=== PATIENT | female | born 1985 | race Caucasian/White ===

== ENCOUNTER 2022-11-20 17:25 | Emergency (ER) | payer OTHER, SELFPAY ==
[2022-11-20 17:34] VITALS: BP 123/74; PULSE 75; RESP 16; TEMP 37; O2SAT 100; BMI 20.2
--- NOTE | 2022-11-20 17:55 | ED.SKABFB1 ---
HPI - Skin/Abscess/Foreign Bdy General Chief complaint: Skin/Abscess/Foreign Body Stated complaint: PIERCING ISSUES Time Seen by Provider: 11/20/22 17:55 Source: patient Mode of arrival: walk-in History of Present Illness HPI narrative: Patient process the emergency department complaining of right lateral periorbital piercing infection. She states she had a piercing done 3 years ago in [place]. She's had several infections from the piercing. She is started with getting infected and she wants me to take it out. She states she called the primary care doctor and was told to come to the emergency department as they cannot get her in for a month. Patient was to have this resolved today. She states she had a little bit of tenderness and there was some pus coming out of the surrounding areas of the piercing. She denies any diplopia or pain with extraocular muscle movements. She denies any headache. She denies any fever, chills. Related Data Previous Rx's Medication Instructions Recorded cephalexin 500 mg capsule 500 mg PO TID 7 days #21 caps 11/20/22 Allergies Allergy/AdvReac Type Severity Reaction Status Date / Time Sulfa (Sulfonamide Allergy Severe Verified 11/20/22 17:33 Antibiotics) Review of Systems ROS Status of ROS 10 or more systems reviewed and unremarkable except as noted in history and below Exam Narrative Exam Narrative: Nurses notes and vital signs reviewed and patient is not hypoxic. General: Nontoxic, Well-appearing and in no apparent distress. Skin: Warm, dry, no pallor noted. No Rash Head: Normocephalic, atraumatic. Neck: Supple, non-tender. Eye: Pupils are equal, round and EOMI. No scleral icterus. Right lateral periorbital piercing with less than 1 mm of erythema surrounding it. Cannot express any pus with pressure. No signs of pre-or post-septal cellulitis. Extraocular muscles are intact. Ears, Nose, Mouth, and Throat: TM clear, no posterior oropharynx erythema or nasal mucosal hypertrophy, uvula is mid-line Oral mucosa is moist Cardiovascular: Regular Rate and Rhythm without murmur, gallop or rub. Respiratory: No accessory muscle use or respiratory distress. Lungs are clear to auscultation, no wheezing, rales or rhonchi Chest Wall: no tenderness Back: No midline thoracic or lumbar vertebral tenderness. No CVA tenderness Musculoskeletal: normal ROM, no calf or popliteal tenderness, no lower extremity edema/swelling GI: Abdomen is soft, non-distended. Normal bowel sounds. No masses appreciated. No tenderness to palpation. No rebound, guarding, or rigidity noted. Neurological: A&O x4. No cranial nerve dysfunction observed. No truncal ataxia. Moves all extremities. Sensation intact. Psychiatric: Cooperative and interactive. Normal mood and affect. Constitutional Vital Signs - 24 hr 11/20/22 17:34 Temperature 98.6 F Pulse Rate [Monitor] 75 Respiratory Rate 16 Blood Pressure [Right Arm] 123/74 H Pulse Oximetry 100 Oxygen Delivery Method Room Air Course Vital Signs Vital signs: Vital Signs Temperature 98.6 F 11/20/22 17:34 Pulse Rate 75 11/20/22 17:34 Respiratory Rate 16 11/20/22 17:34 Blood Pressure 123/74 H 11/20/22 17:34 Pulse Oximetry 100 11/20/22 17:34 Oxygen Delivery Method Room Air 11/20/22 17:34 Temperature 98.6 F 11/20/22 17:34 Pulse Rate 75 11/20/22 17:34 Respiratory Rate 16 11/20/22 17:34 Blood Pressure 123/74 H 11/20/22 17:34 Pulse Oximetry 100 11/20/22 17:34 Oxygen Delivery Method Room Air 11/20/22 17:34 MDM - Skin/Abscess/Foreign Bdy MDM Narrative Medical decision making narrative: Discussed with patient all the risks and benefits of removing the foreign body in this area. I discussed with the patient that the best place to start is calling the nursing parlor to ask who does the removal of her piercings. If they don't to weight-bear then they can advise him to see. I advised the patient is not appropriate for me in the emergency department to perform incision and foreign body removal in the Periorbital area in which can cause severe damage and I cannot fix any other complications that I would cost. I advised the patient to consult with plastic surgeon, ophthalmology, partner or primary care doctor. I advised the patient neck and start her on Keflex now as an antibiotic and she would need to follow-up with the above named to have this problem resolved. Patient does not have any signs of pre-or post-septal cellulitis. She understands. At this time the patient is without objective evidence of an acute process requiring hospitalization or inpatient management. The patient has remained hemodynamically stable. No additional indication for emergent studies at this time. I answered all questions. Discussed discharge instructions including standard anticipatory guidance and what should prompt a return to the emergency department, including if they get worse are not getting better or develops any new or concerning symptoms. I've given them specific time frame in which to follow-up, and who to follow-up with. The patient demonstrates understanding. Patient is nontoxic and stable for discharge with outpatient follow-up. This note was created with the assistance of a speech recognition program. Although the intention is to generate documents that actually reflects the content of the visit, no guarantees can be provided that every mistake has been identified and corrected by editing. Differential Diagnosis Differential diagnosis: Likely abscess of skin or subcutaneous tissue and cellulitis Discharge Plan Discharge Chief Complaint: Skin/Abscess/Foreign Body Clinical Impression: Foreign body (FB) in soft tissue Patient Disposition: Home, Self-Care Time of Disposition Decision: 18:15 Condition: Good Prescriptions / Home Meds: New cephalexin 500 mg capsule 500 mg PO TID 7 Days Qty: 21 0RF Instructions: Eye Foreign Body (ED) Additional Instructions: Follow-up with the piercing parlor, primary care doctor, or plastic surgeon as discussed. Take the antibiotic as discussed. Return to the emergency department with any pounds concerns as discussed. Stand Alone Forms: Portal Instructions Referrals: [facility] [Primary Care Provider] - 1 week
--- NOTE | 2022-11-20 18:25 | PC.NURSE ---
d/c instructions complete, pt verbalized understanding. prescription sent to pt's pharmacy and gait steady to exit
== END 2022-11-20 18:25 | disposition home or self-care (01) ==
PROVIDERS: Emergency Provider Emergency Medicine
DX: M79.5 Residual foreign body in soft tissue (principal)
CPT/HCPCS: 99283

== ENCOUNTER 2024-09-11 09:28 | Emergency (ER) | payer SELFPAY ==
[2024-09-11 09:44] VITALS: BP 156/68; PULSE 63; TEMP 36.8; O2SAT 100; BMI 18.6
[2024-09-11] MEDS: ONDANSETRON 4 MG RAPDIS TABLET SL (10:19)
[2024-09-11] MEDS: lidocaine HCL 15 ML, MAG HYDROX/ALUMINUM HYD/SIMETH 30 ML, HYOSCYAMINE SULFATE 0.25 MG PO (10:20)
--- NOTE | 2024-09-11 14:38 | ED.ABDPAIN1 ---
HPI - Abdominal Pain General Chief Complaint: Abdominal Pain Stated Complaint: ABDOMINAL PAIN Time Seen by Provider: 09/11/24 10:00 Source: patient Mode of arrival: walk-in History of Present Illness HPI narrative: The patient is a 39-year-old female is coming to the ER with epigastric pain that been going on at least for a year according to her is getting worse and usually the pain get better whenever she eats, the patient had some nausea with it today as well She denies any being evaluated by Gastroenterology and she also mentioned that she usually get better after taking Tums Related Data Previous Rx's ?Medication ?Instructions ?Recorded famotidine 20 mg tablet (Pepcid) 20 mg PO BID #10 tabs 09/11/24 pantoprazole 40 mg tablet,delayed 40 mg PO DAILY #30 tabs 09/11/24 release (Protonix) Allergies Allergy/AdvReac Type Severity Reaction Status Date / Time Sulfa (Sulfonamide Allergy Severe Verified 11/20/22 17:33 Antibiotics) Review of Systems ROS Status of ROS 10 or more systems reviewed and unremarkable except as noted in history and below PFSH PFSH Social History Little interest or pleasure in doing things: not at all Feeling down, depressed, or hopeless: not at all Exam Narrative Exam Narrative: Nurses notes and vital signs reviewed and patient is not hypoxic. General: Well-appearing and in no apparent distress. Skin: Warm, dry, no pallor noted. No rash. Head: Normocephalic, atraumatic. Neck: Supple, non-tender. Eye: Pupils are equal, round and EOMI. No scleral icterus. Ears, Nose, Mouth, and Throat: TM are clear, no nasal mucosal hypertrophy. Oral mucosa is moist, no posterior oropharynx erythema, uvula is mid-line Cardiovascular: Regular Rate and Rhythm without murmur, gallop or rub. Respiratory: No accessory muscle use or respiratory distress. Lungs are clear to auscultation, no wheezing, rales or rhonchi Chest Wall: no tenderness Back: No midline thoracic or lumbar vertebral tenderness. No CVA tenderness Musculoskeletal: normal ROM, no calf or popliteal tenderness, no lower extremity edema/swelling GI: Abdomen is soft, non-distended. Normal bowel sounds. No masses appreciated. Mild epigastric discomfort , no rebound, guarding, or rigidity noted. Neurological: A&O x4. No cranial nerve dysfunction observed. . Moves all extremities. Sensation intact. Psychiatric: Cooperative and interactive. Normal mood and affect. Constitutional Vital Signs, click to edit/add: Last Vital Signs Temp 98.2 F 09/11/24 09:44 Pulse 63 09/11/24 09:44 Resp 18 09/11/24 09:44 BP 156/68 H 09/11/24 09:44 Pulse Ox 100 09/11/24 09:44 O2 Del Method Room Air 09/11/24 09:44 Course Vital Signs Vital signs: Vital Signs Temperature 98.2 F 09/11/24 09:44 Pulse Rate 63 09/11/24 09:44 Respiratory Rate 18 09/11/24 09:44 Blood Pressure 156/68 H 09/11/24 09:44 Pulse Oximetry 100 09/11/24 09:44 Oxygen Delivery Method Room Air 09/11/24 09:44 Temperature 98.2 F 09/11/24 09:44 Pulse Rate 63 09/11/24 09:44 Respiratory Rate 18 09/11/24 09:44 Blood Pressure 156/68 H 09/11/24 09:44 Pulse Oximetry 100 09/11/24 09:44 Oxygen Delivery Method Room Air 09/11/24 09:44 MDM - Abdominal Pain MDM Narrative Medical decision making narrative: The patient presentation is mostly secondary to gastritis or peptic ulcer The patient does not have any blood in stool her pain has been going on at least for a year and is get better whenever she take Tums Right now the patient presentation will be treated as possible gastritis with GI cocktail The patient was feeling much better after the GI cocktail Discharged home with Pepcid and Protonix in addition to peptic ulcer diet and referral to GI The patient is to follow up with primary care physician in next 2-3 days or to return to the emergency department should any of the signs or symptoms worsen or new symptoms develop. The patient agrees with the following Diagnosis and Treatment plan and the patient will be discharged home. Discharge Plan Discharge Chief Complaint: Abdominal Pain Clinical Impression: Gastritis Patient Disposition: Home, Self-Care Time of Disposition Decision: 10:34 Condition: Good Prescriptions / Home Meds: New famotidine [Pepcid] 20 mg tablet 20 mg PO BID Qty: 10 0RF pantoprazole [Protonix] 40 mg tablet,delayed release (DR/EC) 40 mg PO DAILY Qty: 30 0RF Print Language: Vietnamese Instructions: Gastritis (DC), Diet for Stomach Ulcers and Gastritis (ED) Referrals: SARAH LEI [Physician] - 1 week [facility] [Primary Care Provider] - 1 week Discharge Date/Time: 09/11/24 10:39
== END 2024-09-11 10:39 | disposition home or self-care (01) ==
PROVIDERS: Emergency Provider Emergency Medicine
DX: K29.70 Gastritis, unspecified, without bleeding (principal)
CPT/HCPCS: 99283; Q0162